=== PATIENT | female | born 1965 | race Caucasian/White ===

== ENCOUNTER 2019-12-31 14:12 | Observation (INO) | payer OTHER ==
[2019-12-30 16:08] LABS: CLARITY,URINE CLEAR (Clear); COLOR,URINE YELLOW (Yellow); GLUCOSE, URINE >=1000 mg/dl (Neg); KETONES,URINE NEGATIVE (Neg); LEUKOCYTE ESTERASE ,URINE NEGATIVE (Neg); NITRITES, URINE NEGATIVE (Neg); OCCULT BLOOD,URINE NEGATIVE (Neg); PROTEIN,URINE NEGATIVE (Neg); UROBILINOGEN,URINE 0.2 E.U/dL (0.2-1.0)
[2019-12-30 16:15] LABS: BASOPHILS # (AUTO) 0.1 X10'3 (0-0.2); BASOPHILS % (AUTO) 1.2 % (0-1); EOSINOPHILS # (AUTO) 0.2 X10'3 (0-0.9); EOSINOPHILS % (AUTO) 2.6 % (0-6); LYMPHOCYTES # (AUTO) 2.8 X10'3 (1.1-4.8); LYMPHOCYTES % (AUTO) 35.2 % (21-51); MEAN CORPUSCULAR HEMOGLOBIN 30.1 PG (27.0-31.0); MEAN CORPUSCULAR HGB CONC 33.6 g/dL (33.0-36.5); MEAN CORPUSCULAR VOLUME 89.4 FL (78-98); MEAN PLATELET VOLUME 10.5 FL (7.4-10.4); MONOCYTES # (AUTO) 0.5 X10'3 (0-0.9); NEUTROPHILS # (AUTO) 4.3 X10'3 (1.8-7.7); PRE OP HEMATOCRIT 41.2 % (35.0-45.0); PRE OP HEMOGLOBIN 13.8 g/dL (12.0-16.0); PRE OP PLATELET COUNT 335 X10'3 (140-440); RED BLOOD COUNT 4.61 X10'6 (4.20-5.60); RED CELL DISTRIBUTION WIDTH 12.9 % (11.5-14.5)
[2019-12-30 16:21] LABS: ALBUMIN 3.6 G/DL (3.4-5.0); ALKALINE PHOSPHATASE 147 IU/L (46-116); BLOOD UREA NITROGEN 14 MG/DL (7-18); BUN/CREATININE RATIO 16.5 (6.6-38.0); CALCIUM 9.1 MG/DL (8.5-10.1); CHLORIDE 102 MMOL/L (99-107); CREATININE 0.85 MG/DL (0.40-0.90); PRE OP ALT 31 U/L (30-65); PRE OP ANION GAP 8 (8-16); PRE OP AST 19 U/L (10-37); PRE OP BILIRUB, TOTAL 0.3 MG/DL (0.0-1.0); PRE OP INR < 0.9 INR; PRE OP PARTIAL THROMB. TIME 24 SECONDS (22-32); PRE OP POTASSIUM 4.3 MMOL/L (3.4-5.1); PRE OP PROTIME 9.6 SECONDS (9.0-12.0); PRE OP SODIUM 136 MMOL/L (135-145); TOTAL PROTEIN 7.3 G/DL (6.4-8.2); eGFR 70 ML/MIN
[2019-12-30 16:24] LABS: PRE OP GLUCOSE 415 MG/DL (70-104)
[2019-12-30 16:24] LABS: UA COLLECTION TYPE NON-SPECIFIED
[2019-12-30 16:27] LABS: BACTERIA,URINE NONE SEEN /HPF (Neg); RBC,URINE NONE SEEN /HPF (0-2); SQUAMOUS EPITHELIAL CELL,UR FEW /LPF (FEW); WBC,URINE 0-4 /HPF (0-4)
[2019-12-30 19:35] LABS: LARGE PLATELETS MODERATE; PLATELET ESTIMATE NORMAL
[2019-12-31] VITALS (19 sets, daily range): BP systolic 103–152; BP diastolic 58–87
[~2019-12-31] VITALS: Ht 167.6 cm; Wt 81.6 kg
[~2019-12-31 14:12] MED LIST: INSU100I31 SQ; INSU100I8 SQ; LEVO112T5 PO; MULT-1085 PO
[2019-12-31] MEDS ORDERED: LIDOcaine 1% (10mg/ml) 2ml vial ONE (15:13)
[2019-12-31] MEDS ORDERED: famotidine 20mg tablet PO ONE (15:15)
[2019-12-31] MEDS ORDERED: levoFLOXACIN-Levaquin 500mg/D5 100 ML IV ONE (15:15)
[2019-12-31] MEDS ORDERED: ringers solution, lacted 1,000 ML IV SCH ×2 (15:16→19:22)
[2019-12-31] MEDS ORDERED: metroNIDAZOLE-Flagyl 500mg/NS 100 ML IV ONE (15:20)
[2019-12-31] MEDS ORDERED: dextrose 5%-lactated ringers 1,000 ML IV SCH (15:45)
[2019-12-31] MEDS ORDERED: dextrose 50%-water 50ml dispensing syringe IV ONE (15:45)
--- NOTE | 2019-12-31 16:52 | NUR ---
PAS UNIT CLOSING SO PT BLACK TO RECOVER. REPORT GIVEN TO ASHELY BUTLER. BLOOD GLUCOSE 89 WHEN LEAVING PAS UNIT. OTHER 1/2 OF D50 GIVEN TO RECOVERY ROOM STAFF IN CASE IT IS NEEDED. FAMILY AT BS WITH PT.
[2019-12-31] MEDS ORDERED: clindamycin phosphate 150mg/ml inj. ONE (18:47)
[2019-12-31] MEDS ORDERED: ceFAZolin 1000mg inj ONE (18:47)
[2019-12-31] MEDS ORDERED: gentamicin 40 MG/1 ML inj ONE (18:47)
[2019-12-31] MEDS ORDERED: BUPIVAcaine/PF 2.5mg/ml (0.25%) 10ml vial ONE (18:47)
[2019-12-31] MEDS ORDERED: midazolam 2 mg/2 ml injection ONE (19:05)
[2019-12-31] MEDS ORDERED: fentaNYL/PF 50MCG/1 ML 2ML syringe ONE (19:05)
[2019-12-31] MEDS ORDERED: sevoflurane 250ml liquid IH ONE (19:05)
[2019-12-31] MEDS ORDERED: propofol inj 20 ML IV ONE (19:07)
[2019-12-31] MEDS ORDERED: morphine 4 MG/ML inj SYRINge IV PRN (19:25)
[2019-12-31] MEDS ORDERED: meperidine/PF 25mg/ml syringe IV PRN ×2 (19:25)
[2019-12-31] MEDS ORDERED: proCHLORperazine 10 MG/2 ml inj IV PRN (19:25)
[2019-12-31] MEDS ORDERED: morphine 2 MG/ML inj. syringe IV PRN (19:25)
[2019-12-31] MEDS ORDERED: ondansetron/PF 4mg/2ml inj IV PRN ×2 (19:25→21:45)
[2019-12-31] MEDS ORDERED: rocuronium 10mg/ml inj IV ONE (19:43)
[2019-12-31] MEDS ORDERED: sugammadex 200mg/2ml injection IV ONE (19:44)
--- NOTE | 2019-12-31 20:07 | NUR ---
Received from OR via SURGICAL BED , accompanied by Anesthesiologist DOMO and report given by Anesthesiolgist. PATIENT WITH 20G PIV IN RIGHT UE RUNNING LR AT 100. ACCUCHECK REVEALS 266 BLOOD GLUCOSE. MD OLIVEROS AWARE AND NO ORDERS RECIEVED. VSS. 10L MASK ON WITH 100% SATURATIONS. 4 ABDOMINAL BANDAIDS PRESENT AND ARE CDI. SCDS DONNED. Addendum: 12/31/19 at 2017 by Lai Regalado RN, RN Amended: Links added.
[2019-12-31] MEDS: meperidine/PF 25mg/ml syringe IV PRN ×2 (20:43→21:05)
[2019-12-31] MEDS ORDERED: insulin glargine (Lantus) pen - multi-dose SQ SCH (21:00)
[2019-12-31] MEDS ORDERED: HYDROcodone/acetaminophen 10/325mg tab PO ONE (21:25)
[2019-12-31] MEDS ORDERED: HYDROmorphone inj. 0.5 MG/0.5 ML DISP.SYRIN IV PRN (21:45)
[2019-12-31] MEDS ORDERED: ketorolac tromethamine 15mg/ml inj. IV ONE (21:45)
--- NOTE | 2019-12-31 22:17 | NUR ---
ALL TRANSFER CRITERIA HAS BEEN MET. OUT TO PCU FOLLOWING REPORT. DRESSINGS TO ABDOMEN STILL CDI. VSS. SPOUSE WITH PATIENT AND FOLDING MACHINE SETTER FROM PCU PICKING PATIENT UP FROM RR. ALL CARE TURNED OVER TO RN ON PCU. ALL QUESTIONS ANSWERED DURING REPORT. Addendum: 12/31/19 at 2304 by Lai Parra - CARRIE RN Amended: Links added.
[2019-12-31] MEDS ORDERED: dextrose 50%-water 50ml dispensing syringe IV PRN ×2 (22:25)
[2019-12-31] MEDS ORDERED: dextrose ORAL solution 15 GM/59 ML bottle PO PRN ×2 (22:25)
[2019-12-31] MEDS ORDERED: MESSAGE TO PHARMACY PO ONE (22:25)
[2019-12-31] MEDS ORDERED: glucagon, human recombinant 1mg kit SUBCUT PRN (22:25)
[2019-12-31] MEDS ORDERED: insulin Lispro (HumaLOG) vial - multi-dose SQ SCH (22:25)
--- NOTE | 2019-12-31 23:09 | NUR ---
pt arrived to unit, BLL, 2x rails up, SCD's on. VSS. at bedside. in no apparent distress, complaint of nausea. will continue to monitor
[2019-12-31] MEDS ORDERED: non-formulary drug (Insulin Lispro (Humalog) 1 UNITS) SQ PRN (23:40)
[2019-12-31] MEDS: Potassium Cl inj 20 MEQ in ringers solution, lacted 1,000 ML IV SCH (23:50)
[2020-01-01] VITALS: BP 122/62
[2020-01-01 00:30] VITALS: BP 125/68
[2020-01-01 01:00] VITALS: BP 109/60
[2020-01-01] MEDS: acetaminophen 1,000mg/100ml IV 100 ML IV SCH ×2 (01:38→07:32)
[2020-01-01 02:00] VITALS: BP_SYST 121; BP_DIAS 61; BP_DIAS 66
--- NOTE | 2020-01-01 04:17 | NUR ---
PT AMBULATED 200', STATES SHE PASSED GAS ONCE
[2020-01-01] MEDS: Potassium Cl inj 20 MEQ in ringers solution, lacted 1,000 ML IV SCH (05:46)
--- NOTE | 2020-01-01 06:16 | NUR ---
Patient in room PCU 3018. I have received report from CARRIE Padilla and had the opportunity to ask questions and assume patient care. Patient awake in bed and in no acute distress.
[2020-01-01 06:31] LABS: BASOPHILS # (AUTO) 0.1 X10'3 (0-0.2); BASOPHILS % (AUTO) 1.5 % (0-1); EOSINOPHILS # (AUTO) 0.1 X10'3 (0-0.9); EOSINOPHILS % (AUTO) 1.2 % (0-6); HEMATOCRIT 34.9 % (35.0-45.0); LYMPHOCYTES # (AUTO) 2.1 X10'3 (1.1-4.8); LYMPHOCYTES % (AUTO) 21.9 % (21-51); MEAN CORPUSCULAR HEMOGLOBIN 30.7 PG (27.0-31.0); MEAN CORPUSCULAR HGB CONC 34.3 g/dL (33.0-36.5); MEAN CORPUSCULAR VOLUME 89.5 FL (78-98); MEAN PLATELET VOLUME 10.2 FL (7.4-10.4); MONOCYTES # (AUTO) 0.5 X10'3 (0-0.9); NEUTROPHILS # (AUTO) 6.7 X10'3 (1.8-7.7); NEUTROPHILS % (AUTO) 70.4 % (42-75); PLATELET COUNT 236 X10'3 (140-440); RED CELL DISTRIBUTION WIDTH 12.8 % (11.5-14.5); WHITE BLOOD COUNT 9.4 X10'3 (4.5-11.0)
[2020-01-01 07:00] VITALS: BP 110/70
[2020-01-01] MEDS ORDERED: levoTHYROXINE 112mcg tablet PO SCH (08:00)
[2020-01-01] MEDS ORDERED: multivitamins, therapeutics tablet PO SCH (08:00)
--- NOTE | 2020-01-01 10:00 | NUR ---
Advanced patient's diet to heart healthy and carbohydrate controlled.
[2020-01-01] MEDS: HYDROcodone/acetaminophen 10/325mg tab PO PRN ×2 (10:19→14:45)
[2020-01-01 11:00] VITALS: BP 130/75
--- NOTE | 2020-01-01 14:52 | NUR ---
Patient stable for discharge per MD orders. All discharge instructions reviewed and all questions answered appropriately. Written prescription for [facility] was given to the patient's last night to be filled. Belongings collected and sent with patient. PIV discontinued and cannula intact. Follow up appointment is with Dr. Kwan on 01/05/20. Patient was wheeled down to the lobby and left via private vehicle.
--- NOTE | 2020-01-01 16:30 | NUR ---
DM consult: Pt documented with A1c of 9.6. RD internal medicine hospitalist attempted bedside visit, however pt was discharged. Written DM education with referral to CDE course and RD contact information mailed to pt address found in EMR. Will be available. Addendum: 01/01/20 at 1630 by Wing Eddie GLEZ Amended: Links added. Addendum: 01/01/20 at [address] I have reviewed and agree with note by Preparator. Adrienne Barth RD
[2020-01-01] MEDS ORDERED: insulin glargine (Lantus) pen - multi-dose SQ SCH ×2 (21:00)
== END 2020-01-01 16:15 | disposition home or self-care (01) ==
LOC: PAS 14:12 → PCU 3S 21:41
PROVIDERS: ADMIT Surgery; ATTEND Surgery
DX: K80.20 Calculus of gallbladder without cholecystitis without obstruction (principal); R11.2 Nausea with vomiting, unspecified; E03.9 Hypothyroidism, unspecified; I10 Essential (primary) hypertension; E11.9 Type 2 diabetes mellitus without complications; Z90.49 Acquired absence of other specified parts of digestive tract; Z90.710 Acquired absence of both cervix and uterus; Z79.4 Long term (current) use of insulin; Z79.899 Other long term (current) drug therapy; Z88.0 Allergy status to penicillin
CPT/HCPCS: 36415; 47562; 71046; 80053; 81001; 82948; 83036; 85025; 85610; 85730; 87081; 93005; 96361; 96365; 96372; 96375; 96376; C9399; G0378; J0131; J0690; J1580; J1815; J1885; J2001; J2175; J2250; J2405; J2704; J3010; J3480; J3490; J7120; A4215; A4314; A4618; A7000